=== PATIENT | male | born 1955 | race Caucasian/White ===

== ENCOUNTER → 2018-11-13 08:58 | Day surgery (SDC) | payer OTHER ==
[~2018-11-13 08:58] MED LIST: Artificial Tear OPHTH.OINT* 3.5 GM ONE; BSS OPTH.SOL* BTL ONE; Buffered Lidocaine 1% SYRIN* 1 ML/SYRINGE INTRADERM ONE; Bupivacaine 0.25% SDV PF* 10 ML VIAL INJ ONE; Lactated Ringers 1000 ML Bag* 1,000 ML IV SCH; Lidocaine 1% w EPI 1:100,000* MDV 20 ML VIAL ONE; Lidocaine 2% PF * 5 ML VIAL ONE; Midazolam* 1 MG/ML 2 ML VIAL (2 MG) ONE; Mineral Oil Sterile, TOPICAL* 25 ML BTL ONE; Naloxone* 0.4 MG/ML 1 ML VIAL IV PRN; Propofol* 10 MG/ML 20 ML BTL ONE; ceFAZolin 2 GM in NS PREMIX(*) 2 GM/100 ML BAG IVPB ONE; fentaNYL* 50 MCG/ML 2 ML VIAL (100 MCG VIAL) ONE
[2018-11-13 14:27] VITALS: BP 134/70
== END | disposition home or self-care (01) ==
LOC: OR 08:58
PROVIDERS: ATTEND Plastic Surgery
DX: C44.311 Basal cell carcinoma of skin of nose (principal); E78.5 Hyperlipidemia, unspecified; R73.03 Prediabetes; D86.9 Sarcoidosis, unspecified; G20 Parkinson's disease
CPT/HCPCS: 88305; 88331; 88332; A9270-GY; J0690; J2250; J2704; J3010; J3490

== ENCOUNTER 2021-01-25 17:22 | Inpatient (IN) ==
[2021-01-25 20:10] LABS: ABS Lymphocytes 0.5 10^3/ul (1.0-4.8); ABS Monocytes 0.9 10^3/ul (0-0.8); ABS Neutrophils 4.1 10^3/ul (1.5-7.7); Eosinophil % 0.1 %; Hematocrit 39 % (42-52); Hemoglobin 13.5 g/dL (14.0-18.0); Lymphocyte % 8.4 %; Mean Corpuscular HGB Conc 35 g/dL (31-36); Mean Corpuscular Hemoglobin 30 pg (27-31); Mean Corpuscular Volume 87 fL (80-94); Mean Platelet Volume 8.1 fL (7.4-10.4); Nucleated Red Blood Cells % 0.1; Platelet Count 196 10^3/uL (150-450); Red Cell Distribution Width 14 % (10-15); White Blood Count 5.5 10^3/uL (3.5-10.8)
[2021-01-25 20:26] LABS: Albumin 3.5 g/dL (3.2-5.2); Albumin/Globulin Ratio 1.1 (1-3); C Reactive Protein 144.07 mg/L (<8.01); Calcium 8.7 mg/dL (8.6-10.3); Globulin 3.3 g/dL (2-4); Potassium 3.5 mmol/L (3.5-5.0); Total Bilirubin 0.6 mg/dL (0.2-1.0); Total Protein 6.8 g/dL (6.4-8.9); eGFR CKD-EPI 86.6 (>60)
[2021-01-25 20:27] LABS: Urine Appearance Cloudy; Urine Bilirubin Negative (Negative); Urine Blood 1+ (Negative); Urine Color Yellow; Urine Glucose Negative (Negative); Urine Ketones Trace (Negative); Urine Nitrite Negative (Negative); Urine Protein 2+(100 mg/dL) (Negative); Urine Specific Gravity 1.021 (1.002-1.030); Urine Urobilinogen Negative (Negative)
[2021-01-25 20:28] LABS: Troponin I 0.01 ng/mL (<0.03)
[2021-01-25 20:45] LABS: Urine Bacteria Absent (Absent); Urine Red Blood Cell Trace(0-2/hpf) (Absent); Urine White Blood Cell Trace(0-5/hpf) (Absent)
[2021-01-25] MEDS ORDERED: Remdesivir 100 mg Vial 200 MG in NS 0.9% 250 ml 210 ML IV ONE (21:53)
[2021-01-25] MEDS ORDERED: Albuterol HFA INHALER 8 gm MDI INH PRN (21:54)
[2021-01-26] MEDS ORDERED: Senna TAB 8.6 mg TAB PO PRN (04:46)
[2021-01-26] MEDS: Enoxaparin 40 MG/0.4 ML SYR SUBCUT SCH (05:37)
[2021-01-26 06:19] LABS: INR 1.25 (0.86-1.15)
[2021-01-26 06:37] LABS: Albumin 3.6 g/dL (3.2-5.2); Calcium 8.6 mg/dL (8.6-10.3); Globulin 3.7 g/dL (2-4); Total Bilirubin 0.5 mg/dL (0.2-1.0); Total Protein 7.3 g/dL (6.4-8.9); eGFR CKD-EPI 92.3 (>60)
[2021-01-26 08:08] LABS: ABS Lymphocytes 0.4 10^3/ul (1.0-4.8); ABS Monocytes 0.8 10^3/ul (0-0.8); ABS Neutrophils 3.4 10^3/ul (1.5-7.7); Hematocrit 43 % (42-52); Hemoglobin 14.8 g/dL (14.0-18.0); Lymphocyte % 7.7 %; Mean Corpuscular HGB Conc 34 g/dL (31-36); Mean Corpuscular Hemoglobin 30 pg (27-31); Mean Corpuscular Volume 88 fL (80-94); Mean Platelet Volume 8.7 fL (7.4-10.4); Nucleated Red Blood Cells % 0.1; Platelet Count 222 10^3/uL (150-450); Red Blood Count 4.94 10^6 /uL (4.18-5.48); Red Cell Distribution Width 13 % (10-15); White Blood Count 4.6 10^3/uL (3.5-10.8)
[2021-01-26] MEDS: Carbidopa/Levodop 25/100 MG TAB PO SCH ×3 (10:23→18:09)
[2021-01-26] MEDS: CMCS: Rasagiline 1 mg TAB (NF) PO SCH (11:56)
[2021-01-26 13:38] LABS: Ferritin 949.2 ng/mL (24-336)
[2021-01-26] MEDS: Remdesivir 100 mg Vial 100 MG in NS 0.9% 250 ml 230 ML IV SCH (21:49)
[2021-01-27 06:30] LABS: INR 1.33 (0.86-1.15)
[2021-01-27 06:51] LABS: Albumin 3.3 g/dL (3.2-5.2); Albumin/Globulin Ratio 0.9 (1-3); Calcium 8.3 mg/dL (8.6-10.3); Globulin 3.5 g/dL (2-4); Potassium 3.6 mmol/L (3.5-5.0); Total Bilirubin 0.5 mg/dL (0.2-1.0); Total Protein 6.8 g/dL (6.4-8.9); eGFR CKD-EPI 99.4 (>60)
[2021-01-27 07:56] LABS: ABS Lymphocytes 0.5 10^3/ul (1.0-4.8); ABS Monocytes 1.1 10^3/ul (0-0.8); ABS Neutrophils 5.8 10^3/ul (1.5-7.7); Eosinophil % 0.1 %; Hematocrit 43 % (42-52); Hemoglobin 14.6 g/dL (14.0-18.0); Lymphocyte % 6.7 %; Mean Corpuscular HGB Conc 34 g/dL (31-36); Mean Corpuscular Hemoglobin 30 pg (27-31); Mean Corpuscular Volume 88 fL (80-94); Mean Platelet Volume 8.7 fL (7.4-10.4); Platelet Count 266 10^3/uL (150-450); Red Blood Count 4.92 10^6 /uL (4.18-5.48); Red Cell Distribution Width 14 % (10-15); White Blood Count 7.4 10^3/uL (3.5-10.8)
[2021-01-27] MEDS: Carbidopa/Levodop 25/100 MG TAB PO SCH ×3 (08:04→17:26)
[2021-01-27] MEDS: CMCS: Rasagiline 1 mg TAB (NF) PO SCH (08:06)
[2021-01-27] MEDS: Enoxaparin 40 MG/0.4 ML SYR SUBCUT SCH (08:07)
[2021-01-27] MEDS: Remdesivir 100 mg Vial 100 MG in NS 0.9% 250 ml 230 ML IV SCH (21:21)
[2021-01-28] MEDS: Calcium Carb (TUMS) 500 mg CHEW TAB PO PRN ×2 (04:40→16:31)
[2021-01-28 07:05] LABS: INR 1.37 (0.86-1.15)
[2021-01-28 07:11] LABS: Albumin 3.2 g/dL (3.2-5.2); Albumin/Globulin Ratio 1.1 (1-3); Calcium 8.4 mg/dL (8.6-10.3); Potassium 3.4 mmol/L (3.5-5.0); Total Bilirubin 0.4 mg/dL (0.2-1.0); Total Protein 6.2 g/dL (6.4-8.9); eGFR CKD-EPI 99.4 (>60)
[2021-01-28] MEDS: CMCS: Rasagiline 1 mg TAB (NF) PO SCH (09:21)
[2021-01-28] MEDS: Enoxaparin 40 MG/0.4 ML SYR SUBCUT SCH (09:22)
[2021-01-28] MEDS: Carbidopa/Levodop 25/100 MG TAB PO SCH ×3 (09:24→16:31)
[2021-01-28] MEDS: Remdesivir 100 mg Vial 100 MG in NS 0.9% 250 ml 230 ML IV SCH (21:05)
[2021-01-29] MEDS: Calcium Carb (TUMS) 500 mg CHEW TAB PO PRN ×3 (00:57→21:19)
[2021-01-29 06:34] LABS: INR 1.35 (0.86-1.15)
[2021-01-29 06:35] LABS: Albumin 3.3 g/dL (3.2-5.2); Albumin/Globulin Ratio 1.1 (1-3); Calcium 8.9 mg/dL (8.6-10.3); Potassium 3.8 mmol/L (3.5-5.0); Total Bilirubin 0.5 mg/dL (0.2-1.0); Total Protein 6.3 g/dL (6.4-8.9); eGFR CKD-EPI 100.1 (>60)
[2021-01-29] MEDS: Carbidopa/Levodop 25/100 MG TAB PO SCH ×3 (09:58→16:59)
[2021-01-29] MEDS: CMCS: Rasagiline 1 mg TAB (NF) PO SCH (09:59)
[2021-01-29] MEDS: Enoxaparin 40 MG/0.4 ML SYR SUBCUT SCH (09:59)
[2021-01-29] MEDS: Remdesivir 100 mg Vial 100 MG in NS 0.9% 250 ml 230 ML IV SCH (21:11)
[2021-01-30] MEDS: Carbidopa/Levodop 25/100 MG TAB PO SCH ×3 (09:18→17:15)
[2021-01-30] MEDS: CMCS: Rasagiline 1 mg TAB (NF) PO SCH (09:19)
[2021-01-30] MEDS: Enoxaparin 40 MG/0.4 ML SYR SUBCUT SCH (09:22)
[2021-01-31] MEDS: Carbidopa/Levodop 25/100 MG TAB PO SCH ×3 (09:10→17:40)
[2021-01-31] MEDS: CMCS: Rasagiline 1 mg TAB (NF) PO SCH (09:11)
[2021-01-31] MEDS: Enoxaparin 40 MG/0.4 ML SYR SUBCUT SCH (09:11)
[2021-02-01] MEDS: Polyethylene Glycol 3350 17 GM PACKET PO PRN (00:31)
[2021-02-01] MEDS: CMCS: Rasagiline 1 mg TAB (NF) PO SCH (08:21)
[2021-02-01] MEDS: Carbidopa/Levodop 25/100 MG TAB PO SCH ×3 (08:21→17:47)
[2021-02-01] MEDS: Enoxaparin 40 MG/0.4 ML SYR SUBCUT SCH (08:23)
[2021-02-02] MEDS: Enoxaparin 40 MG/0.4 ML SYR SUBCUT SCH (10:02)
[2021-02-02] MEDS: CMCS: Rasagiline 1 mg TAB (NF) PO SCH (10:03)
[2021-02-02] MEDS: Carbidopa/Levodop 25/100 MG TAB PO SCH ×3 (10:04→18:26)
[2021-02-02] MEDS: Polyethylene Glycol 3350 17 GM PACKET PO PRN (18:26)
[2021-02-03] MEDS: CMCS: Rasagiline 1 mg TAB (NF) PO SCH (08:59)
[2021-02-03] MEDS: Carbidopa/Levodop 25/100 MG TAB PO SCH ×2 (09:01→13:12)
[2021-02-03] MEDS: Enoxaparin 40 MG/0.4 ML SYR SUBCUT SCH (09:02)
[2021-02-03 16:21] VITALS: BP 110/56
== END 2021-02-03 16:38 | disposition swing bed (61) | DRG 137 ==
LOC: ED 17:22 → EDHOLD 01-26 00:55 → MED 01-26 02:47
PROVIDERS: ADMIT Student in an Organized Health Care Education/Training Program; ATTEND Student in an Organized Health Care Education/Training Program

== ENCOUNTER 2021-02-03 16:39 | Inpatient (IN) ==
[2021-02-03] MEDS ORDERED: Senna TAB 8.6 mg TAB PO PRN (17:10)
[2021-02-03] MEDS: Carbidopa/Levodop 25/100 MG TAB PO SCH (17:16)
[2021-02-03] MEDS ORDERED: Enoxaparin 40 MG/0.4 ML SYR SUBCUT SCH (18:00)
[2021-02-04] MEDS ORDERED: Polyethylene Glycol 3350 17 GM PACKET PO SCH (09:00)
[2021-02-04] MEDS ORDERED: RASAGILINE 1 MG PO SCH (09:00)
[2021-02-04] MEDS ORDERED: Enoxaparin 40 MG/0.4 ML SYR SUBCUT SCH (09:00)
[2021-02-04] MEDS: Carbidopa/Levodop 25/100 MG TAB PO SCH ×2 (09:02→13:09)
[2021-02-04 12:11] VITALS: BP 109/70
== END 2021-02-04 15:42 | disposition home or self-care (01) | DRG 137 ==
LOC: MED 16:39
PROVIDERS: ADMIT Hospitalist; ATTEND Hospitalist